=== PATIENT | male | born 1975 | race Asian ===

== ENCOUNTER 2017-05-20 22:41 | Emergency (ER) | payer OTHER ==
[~2017-05-20] VITALS: Ht 177.8 cm; Wt 90.7 kg
[2017-05-20 22:47] VITALS: Ht 177.8 cm; Wt 90.7 kg
[2017-05-20 23:48] LABS: BASOPHIL % 0.3 % (0-2); PLATELET COUNT 378 x10^3mcL (130-400)
[2017-05-20 23:58] LABS: CALCIUM 9.1 mg/dL (8.5-10.1); CHLORIDE SERUM 101 mmol/L (98-107); CREATININE SERUM 1.2 mg/dL (0.7-1.3); GFR1 > 60 mL/min; GLUCOSE SERUM 103 mg/dL (74-106); POTASSIUM SERUM 3.7 mmol/L (3.5-5.1); SODIUM SERUM 138 mmol/L (136-145)
[2017-05-21 00:05] LABS: ALBUMIN 4.3 g/dL (3.4-5.0); ALKALINE PHOSPHATASE 41 U/L (46-116); ALT/SGPT 31 U/L (16-63); AMPHETAMINE QUAL UR NONE DETECTED (NEG <=1000); AST/SGOT 18 U/L (15-37); TOTAL PROTEIN, SERUM 7.3 g/dL (6.4-8.2)
[2017-05-21 00:32] VITALS: BP 113/73
== END 2017-05-21 00:32 | disposition home or self-care (01) ==
LOC: ED 22:41
PROVIDERS: Emergency Medicine
DX: R41.82 Altered mental status, unspecified (principal); F19.10 Other psychoactive substance abuse, uncomplicated
CPT/HCPCS: J7030

== ENCOUNTER 2017-08-13 19:42 | Inpatient (IN) | payer OTHER ==
[~2017-08-13] VITALS: Ht 177.8 cm; Wt 90.0 kg
[2017-08-13 20:47] LABS: CARBON DIOXIDE 24.2 mmol/L (21-32); CHLORIDE SERUM 102 mmol/L (98-107); CREATININE SERUM 1.7 mg/dL (0.7-1.3); GFR1 47 mL/min; GLUCOSE SERUM 116 mg/dL (74-106); POTASSIUM SERUM 3.6 mmol/L (3.5-5.1); SODIUM SERUM 139 mmol/L (136-145)
[2017-08-13 20:56] LABS: ALBUMIN 4.1 g/dL (3.4-5.0); ALKALINE PHOSPHATASE 50 U/L (46-116); ALT/SGPT 39 U/L (16-63); AST/SGOT 48 U/L (15-37); BILIRUBIN TOTAL 0.79 mg/dL (0.20-1.00); FREE T4 1.16 ng/dL (0.76-1.46); TOTAL PROTEIN, SERUM 7.3 g/dL (6.4-8.2)
[2017-08-13 20:57] LABS: UA SPECIFIC GRAVITY >=1.030 (1.005-1.035); microscopic required? YES; urine erythrocyte 2+ (NEGATIVE)
[2017-08-13 21:01] LABS: PLATELET COUNT 369 x10^3mcL (130-400)
[2017-08-13 21:13] LABS: RED CELL DISTRIBUTION WIDTH 16.3 % (11.5-14.5)
[2017-08-13 21:17] LABS: AMPHETAMINE QUAL UR NONE DETECTED (See below)
[2017-08-13 22:45] LABS: BAND NEUTROPHIL 2 % (0-10); MONOCYTE 3 % (0-7); SEGMENTED NEUTROPHILS 90 % (37-75)
[2017-08-13 22:46] LABS: rbc morphology (normal/abnorm) ABNORMAL (NORMAL)
[2017-08-13 22:47] LABS: PLATELET MORPHOLOGY PLATELETS NORMAL
[2017-08-14] VITALS (7 sets, daily range): BP systolic 108–139; BP diastolic 55–91; Ht 177.8 cm; Wt 90.0 kg
[2017-08-14 01:08] LABS: TOTAL PROTEIN CSF 42.6 mg/dL (15-45)
[2017-08-14 01:31] LABS: COLOR CSF COLORLESS
[2017-08-14 01:32] LABS: APPEARANCE CSF BLOODY; WBC CSF 2 /cumm (0-5)
[2017-08-14 01:33] LABS: APPEARANCE CSF CLEAR; COLOR CSF COLORLESS; RBC CSF 0 /cumm (0); RBC CSF 1884 /cumm (0); WBC CSF 0 /cumm (0-5)
[2017-08-14 02:05] LABS: T3 TOTAL 0.93 ng/mL
[2017-08-14 02:32] LABS: FREE T4 1.22 ng/dL (0.76-1.46); FREE THYROXINE INDEX 2.1 ug/dL (1.4-4.5); T4(THYROXINE) 6.1 ug/dL (4.7-13.3)
[2017-08-14 03:17] LABS: UA SPECIFIC GRAVITY >=1.030 (1.005-1.035); microscopic required? YES; urine erythrocyte 1+ (NEGATIVE)
[2017-08-14 04:05] LABS: CHOLESTEROL/HDL RATIO 3.7; MAGNESIUM 3.1 mg/dL (1.8-2.4); PHOSPHOROUS 4.5 mg/dL (2.5-4.9)
[2017-08-14 06:51] LABS: BASOPHIL % 0.1 % (0-2); PLATELET COUNT 324 x10^3mcL (130-400)
[2017-08-14 07:01] LABS: CALCIUM 8.1 mg/dL (8.5-10.1); CARBON DIOXIDE 29.7 mmol/L (21-32); CHLORIDE SERUM 106 mmol/L (98-107); CREATININE SERUM 1.1 mg/dL (0.7-1.3); GFR1 > 60 mL/min; GLUCOSE SERUM 95 mg/dL (74-106); MAGNESIUM 2.6 mg/dL (1.8-2.4); PHOSPHOROUS 3.2 mg/dL (2.5-4.9); POTASSIUM SERUM 3.6 mmol/L (3.5-5.1); SODIUM SERUM 141 mmol/L (136-145)
[2017-08-14 07:04] LABS: RED CELL DISTRIBUTION WIDTH 16.6 % (11.5-14.5); rbc morphology (normal/abnorm) ABNORMAL (NORMAL)
[2017-08-15 04:43] VITALS: BP 131/86
[2017-08-15 07:24] LABS: BASOPHIL % 0.6 % (0-2); PLATELET COUNT 304 x10^3mcL (130-400)
[2017-08-15 07:33] LABS: RED CELL DISTRIBUTION WIDTH 15.9 % (11.5-14.5); rbc morphology (normal/abnorm) ABNORMAL (NORMAL)
[2017-08-15 07:38] LABS: CALCIUM 7.3 mg/dL (8.5-10.1); CARBON DIOXIDE 25.4 mmol/L (21-32); CHLORIDE SERUM 108 mmol/L (98-107); CREATININE SERUM 0.7 mg/dL (0.7-1.3); GFR1 > 60 mL/min; GLUCOSE SERUM 91 mg/dL (74-106); MAGNESIUM 2.2 mg/dL (1.8-2.4); PHOSPHOROUS 2.2 mg/dL (2.5-4.9); POTASSIUM SERUM 3.8 mmol/L (3.5-5.1); SODIUM SERUM 141 mmol/L (136-145)
[2017-08-15 08:20] VITALS: BP 135/91
[2017-08-15 13:05] VITALS: BP 132/99
[2017-08-15 13:48] VITALS: BP 135/91
== END 2017-08-15 16:13 | disposition home or self-care (01) | DRG 812 ==
LOC: ED 19:42 → DU 23:28
PROVIDERS: Emergency Medicine; Internal Medicine
DX: T40.7X4A Poisoning by cannabis (derivatives), undetermined, initial encounter (principal); N17.0 Acute kidney failure with tubular necrosis; G92 Toxic encephalopathy; R31.9 Hematuria, unspecified; T79.6XXA Traumatic ischemia of muscle, initial encounter; M19.90 Unspecified osteoarthritis, unspecified site; F12.10 Cannabis abuse, uncomplicated; F23 Brief psychotic disorder; Z72.0 Tobacco use; Z68.31 Body mass index [BMI] 31.0-31.9, adult
CPT/HCPCS: 83880; 84439; G0480; J0696; J2001; J2060; J3490; J7030; Q0092